=== PATIENT | male | born 1975 | race Caucasian/White ===

== ENCOUNTER 2016-05-29 20:45 | Emergency (ER) | payer BC ==
--- NOTE | 2016-05-29 21:32 | ER Document Report ---
ED Psych Disorder / Suicide - General Chief Complaint: Suicidal Ideation Stated Complaint: SUICIDAL IDEATIONS Time seen by provider: 21:32 Mode of Arrival: Wheelchair Information source: Patient - HPI Patient complains to provider of: Suicidal ideation, Suicidal plan Onset was: Cannot confirm Quality of pain: No pain Suicide Risk Factors: Bipolar, Depressed, Male, Prior suicide attempt Suicide Attempt Method: Stabbing/Cutting Normal mood: No Associated symptoms: Depressed, Flat affect Similar symptoms previously: Yes Recently seen / treated by doctor: No Notes: Patient is a 41-year-old male with a history of bipolar depression resents to the emergency room complaining of worsening depression with suicidal ideation and a plan to cut his wrists, he has a history of previous attempts by cutting his wrists in the past, he denies any current injury or pain - Related Data Allergies/Adverse Reactions: No Known Allergies Allergy (Verified 02/05/12 05:39) Past Medical History - General Information source: Patient - Social History Smoking Status: Unknown if Ever Smoked Family History: Reviewed & Not Pertinent GI Medical History: Reports: Hx Diverticulitis - Actually diverticulosis, Hx Irritable Bowel Psychiatric Medical History: Reports: Hx Bipolar Disorder, Hx Depression, Hx Schizoaffective Disorder - Immunizations Hx Diphtheria, Pertussis, Tetanus Vaccination: No Review of Systems - Review of Systems Constitutional: No symptoms reported EENT: No symptoms reported Cardiovascular: No symptoms reported Respiratory: No symptoms reported Gastrointestinal: No symptoms reported Genitourinary: No symptoms reported Male Genitourinary: No symptoms reported Musculoskeletal: No symptoms reported Skin: No symptoms reported Hematologic/Lymphatic: No symptoms reported Neurological/Psychological: See HPI -: Yes All other systems reviewed and negative Physical Exam - Vital signs Interpretation: Normal - General General appearance: Appears well, Alert - HEENT Head: Normocephalic, Atraumatic Eyes: Normal Pupils: PERRL - Respiratory Respiratory status: No respiratory distress Chest status: Nontender Breath sounds: Normal Chest palpation: Normal - Cardiovascular Rhythm: Regular Heart sounds: Normal auscultation Murmur: No - Abdominal Inspection: Normal Distension: No distension Bowel sounds: Normal Tenderness: Nontender Organomegaly: No organomegaly - Back Back: Normal, Nontender - Extremities General upper extremity: Normal inspection, Nontender, Normal color, Normal ROM , Normal temperature General lower extremity: Normal inspection, Nontender, Normal color, Normal ROM , Normal temperature, Normal weight bearing. No: Rena's sign - Neurological Neuro grossly intact: Yes Cognition: Normal Orientation: AAOx4 [place] Coma Scale Eye Opening: Spontaneous [place] Coma Scale Verbal: Oriented [place] Coma Scale Motor: Obeys Commands Mck[place] Coma Scale Total: 15 Speech: Normal Motor strength normal: LUE, RUE, LLE, RLE Sensory: Normal - Psychological Associated symptoms: Depressed, Flat affect - Skin Skin Temperature: Warm Skin Moisture: Dry Skin Color: Normal Course - Re-evaluation Re-evalutation: 05/30/16 05:00 Patient admits to depression with suicidal thoughts and a plan to cut his wrists , he has actually attempted to cut his wrists in the past, no evidence of injury today, however given patient's admission to suicidal ideation IVC paper work has been completed and patient will remain in the emergency room for further evaluation by the mental health team, he is otherwise medically cleared for transfer discharge - Laboratory Result Diagrams: 05/29/16 23:20 05/29/16 23:20 Laboratory results interpreted by me: 05/29/16 05/29/16 23:20 23:20 MCH 33.5 H Salicylates < 1.0 L Acetaminophen < 10 L - EKG Interpretation by Ar EKG shows normal: Sinus rhythm Rate: Normal Rhythm: NSR Discharge - Discharge Clinical Impression: Suicidal ideation Depression Qualifiers: Depression Type: unspecified Qualified Code(s): F32.9 - Major depressive disorder, single episode, unspecified Condition: Stable Disposition: PSYCH HOSP/UNIT
[2016-05-29 23:21] LABS: APPEARANCE,URINE CLEAR; BILIRUBIN,URINE NEGATIVE (NEGATIVE); GLUCOSE, URINE NEGATIVE (NEGATIVE); KETONES,URINE NEGATIVE (NEGATIVE); LEUKOCYTE ESTERASE,URINE NEGATIVE (NEGATIVE); NITRITE,URINE NEGATIVE (NEGATIVE); PROTEIN,URINE NEGATIVE (NEGATIVE); UROBILINOGEN,URINE NEGATIVE mg/dL (<2.0)
[2016-05-29 23:29] LABS: ABSOLUTE EOSINOPHILS # (AUTO) 0.1 10^3/uL (0.0-0.6); ABSOLUTE LYMPHOCYTES (AUTO) 3.5 10^3/uL (0.5-4.7); ABSOLUTE MONOCYTES (AUTO) 0.5 10^3/uL (0.1-1.4); ABSOLUTE NEUT (AUTO) 4.3 10^3/uL (1.7-8.2); BASOPHILS % (AUTO) 0.4 % (0-2); EOSINOPHILS % (AUTO) 1.5 % (0-6); HEMOGLOBIN 15.6 g/dL (13.5-17.0); HGB HCT DIFFERENCE 2.8; LYMPHOCYTES % (AUTO) 40.9 % (13-45); MEAN CORPUSCULAR HEMOGLOBIN 33.5 pg (27.0-33.4); MEAN CORPUSCULAR HGB CONC 35.5 g/dL (32.0-36.0); MEAN CORPUSCULAR VOLUME 94 fl (80-97); RED BLOOD COUNT 4.66 10^6/uL (4.35-5.55); RED CELL DISTRIBUTION WIDTH 12.7 % (11.5-14.0); SEGMENTED NEUTROPHILS % (AUTO) 51.2 % (42-78); WHITE BLOOD COUNT 8.5 10^3/uL (4.0-10.5)
[2016-05-29 23:33] LABS: URINE SPECIFIC GRAVITY 1.004
[2016-05-29 23:37] LABS: URINE BARBITURATES SCREEN NEGATIVE; URINE METHADONE SCREEN NEGATIVE; URINE OPIATES LOW NEGATIVE; URINE PHENCYCLIDINE SCREEN NEGATIVE
[2016-05-29 23:54] LABS: ALANINE AMINOTRANSFERASE 39 U/L (21-72); ALBUMIN 4.6 g/dL (3.5-5.0); ALCOHOL 121 mg/dL (NONE DETECTED); ALKALINE PHOSPHATASE 61 U/L (38-126); ANION GAP 13 (5-19); ASPARTATE AMINO TRANSFERASE 28 U/L (17-59); BILIRUBIN,TOTAL 0.4 mg/dL (0.2-1.3); BLOOD UREA NITROGEN 13 mg/dL (7-20); CALCIUM 9.7 mg/dL (8.4-10.2); CARBON DIOXIDE 24 mmol/L (22-30); CHLORIDE 107 mmol/L (98-107); CREATININE RESULT 0.85 mg/dL (0.52-1.25); GLUCOSE 101 mg/dL (75-110); POTASSIUM 4.2 mmol/L (3.6-5.0); SODIUM 143.8 mmol/L (137-145); TOTAL PROTEIN 6.9 g/dL (6.3-8.2)
--- NOTE | 2016-05-30 08:22 | EKG REPORT ---
SEVERITY:- NORMAL ECG - SINUS RHYTHM : Confirmed by: Dakota Celis 30-May-2016 08:22:10
--- NOTE | 2016-05-30 13:16 | PSYCHOLOGICAL NOTE ---
Psych Note - Psych Note Psych Note: Patient is a 41 year old male who presented to ED via EMS overnight. Pt was found walking with a knife in his hand with reported intent to hurt himself. Pt was also noted to have a detailed plan to hang himself with a neuse, which was reportedly found at residence of Pt. Pt did endorse consuming ETOH upon arrival and endorsed continued SI. Note, patient also reported upon arrival he wished to be IVCd and get help. Patient reported a history of Bipolar Disorder and substance abuse. Patient's tox was positive for ETOH of 121. Patient this morning states he is a chronic alcoholic and has drank daily for 20 years. Patient states he averages about six 40oz beers per day + whatever lese he can locate. Patient states he has "attempted" suicide roughly 8 times over the past 15 years, most recently 4 years ago he planned to ride his scooter into oncoming traffic, prior to that was 2 overdoses and cutting episodes. Patient states yesterday he was going to cut his jugular, but decided not to. Patient states what he actually wants to do is get sober, but he can only do so if he is not permitted to leave. Patient states he has gone through detox in the past , but leaves each time. Patient states he is depressed because he "cant escape addiction." Patient states if he is released, he will just return to his sister 's house and drink, and probably get upset and go into the [place] suicidal. Patient denies wanting to and states he would actually like to get sober. Patient states it is a vicious cycle. Patient states he feels as though if he could get his underlying Bipolar disorder addressed, he could possibly achieve sobriety. Patient's sisterPearl states: Per message, unable to leave [facility]. Patient is A&Ox4. Mood is euthymic with normal affect. Patient endorses suicidal ideations within the context of alcoholism and struggling to achieve and maintain sobriety. Patient denies homicidal ideaitons, intent, plan, or means. Patient denies A/V h; delusions not noted. Thought processes were organized. Conversational speech was fast for rate. Intellectual abilities were estimated within average range. Attention and focus were good. Insight, judgment , and impulse control were poor. Unspecified Alcohol Use Disorder, per history Unspecified Bipolar and Related Disorder Patient is psychiatrically cleared for discharge and recommended for rescind IVC. Patient is strongly encouraged to pursue detox, which in [place] is largely a voluntary process. Patient states he does not want to and in fact wants to achieve sobriety. Patient was provided the necessary resources to pursue detox. I consulted with Dr. Cardenas in regards to the care and management of this patient.
--- NOTE | 2016-05-30 13:35 | ER Document Report ---
ED Psych Disorder / Suicide - General Chief Complaint: Suicidal Ideation Stated Complaint: SUICIDAL IDEATIONS Mode of Arrival: Wheelchair - Related Data Allergies/Adverse Reactions: No Known Allergies Allergy (Verified 02/05/12 05:39) Home Medications: Current Home Medications No Home Medications 05/30/16 [History] Past Medical History - General Information source: Patient - Social History Smoking Status: Unknown if Ever Smoked Family History: Reviewed & Not Pertinent GI Medical History: Reports: Hx Diverticulitis - Actually diverticulosis, Hx Irritable Bowel Psychiatric Medical History: Reports: Hx Bipolar Disorder, Hx Depression, Hx Schizoaffective Disorder - Immunizations Hx Diphtheria, Pertussis, Tetanus Vaccination: No Physical Exam - Vital signs Vitals: Temp Pulse Resp BP Pulse Ox 98.4 F 102 H 18 142/98 H 99 05/29/16 20:52 05/29/16 20:52 05/29/16 20:52 05/29/16 20:52 05/29/16 20:52 Course - Re-evaluation Re-evalutation: 05/30/16 13:33 41-year-old male that presents initially expressing suicidality. He no longer feels suicidal and wants to go receive voluntary detox. IVC rescinded and will DC home with information about outpatient detox. - Vital Signs Vital signs: Temp Pulse Resp BP Pulse Ox 98.3 F 68 16 121/96 H 97 05/30/16 10:54 05/30/16 10:54 05/30/16 10:54 05/30/16 10:54 05/30/16 10:54 - Laboratory Result Diagrams: 05/29/16 23:20 05/29/16 23:20 Laboratory results interpreted by me: 05/29/16 05/29/16 23:20 23:20 MCH 33.5 H Salicylates < 1.0 L Acetaminophen < 10 L Discharge - Discharge Clinical Impression: Alcohol abuse Depression Qualifiers: Depression Type: unspecified Qualified Code(s): F32.9 - Major depressive disorder, single episode, unspecified Condition: Stable Disposition: HOME, SELF-CARE Additional Instructions: DEPRESSION: Your evaluation reveals that you have mental depression. While symptoms may be vague, they often include disturbance of sleep, fatigue, loss of appetite , and general loss of interest in life. While depression may be a side effect of drugs, or a reaction to a major change in your life, many cases have no known cause. If depression is acute, and related to a major loss in your life, you can expect it to clear completely with time. If you have been depressed a long time , are prone to repeated bouts of depression or low mood, or have been thinking of suicide, get help. Depression can be treated with anti-depressant medication and counselling. Long-term depression will often take a few weeks to clear, even with appropriate medication. Follow-up care is important. SUICIDAL IDEATION: Suicidal ideation is a common medical term for thoughts about suicide, which may be as detailed as a formulated plan, without the suicidal act itself. Although most people who undergo suicidal ideation do not commit suicide, some go on to make suicide attempts. The range of suicidal ideation varies greatly from fleeting to detailed planning, role playing, and unsuccessful attempts. While thoughts about suicide are common, most people do not carry out serious actions to commit suicide. Based upon your evaluation and discussion with you, we do not believe you are currently at risk to act upon your thoughts of suicide. You have agreed to return to the Emergency Department, at any time , if you feel inclined to act upon your suicidal thoughts. FOLLOW-UP CARE: If you have been referred to a physician for follow-up care, call the physician s office for an appointment as you were instructed or within the next two days. If you experience worsening or a significant change in your symptoms, notify the physician immediately or return to the Emergency Department at any time for re-evaluation.
[2016-05-30 14:03] VITALS: BP 129/87
== END 2016-05-30 14:03 | disposition home or self-care (01) ==
LOC: ER 20:45
DX: F32.9 Major depressive disorder, single episode, unspecified (principal); F10.10 Alcohol abuse, uncomplicated; R45.851 Suicidal ideations
CPT/HCPCS: 36415; 80053; 80307; 81001; 85025; 93005; 93010; 99285

== ENCOUNTER 2018-06-03 00:01 | Emergency (ER) | payer SELFPAY ==
[2018-06-03] MEDS ORDERED: HALOPERIDOL LACTATE INJ 5 MG/1 ML VIAL IM ONE (00:20)
[2018-06-03] MEDS ORDERED: LORAZEPAM INJ 2 MG/1 ML VIAL IM ONE (00:21)
--- NOTE | 2018-06-03 00:47 | ER Document Report ---
Addendum entered and electronically signed by CAMI YANES MD 06/03/18 12:00: Discharge - Discharge Clinical Impression: Alcohol abuse Suicidal behavior Qualifiers: Attempted self-injury: without attempted self-injury Qualified Code(s): R46.89 - Other symptoms and signs involving appearance and behavior Condition: Stable Disposition: HOME, SELF-CARE Additional Instructions: You have been evaluated both medical and behavioral health teams have been deemed appropriate for discharge. You are highly encouraged to follow-up with integrated family services for assistance in obtaining substance abuse treatment. You have provided resources of area providers including mobile crisis contact information. ACUTE ALCOHOL INTOXICATION and ALCOHOL ABUSE: Your evaluation revealed very high levels of alcohol. You can from drinking a large amount of alcohol rapidly! Further, there's the risk of falls, traffic accidents, and fights. A high portion (about 50 percent) of the serious injuries seen in hospital emergency rooms are caused by alcohol. Alcohol overdosage is usually due to an underlying emotional or psychiatric problem. You may benefit from counselling. If "binge" drinking is an ongoing problem for you, or if you drink ANY AMOUNT of alcohol EVERY day, you most likely have a tendency to alcoholism. You should avoid alcohol totally. We can refer you for treatment. Persons with alcohol problems are often also prone to other addictions -- you should discuss any use of medications or drugs with the doctor. You should be watched at home for the next several hours by someone who has not been drinking. Get extra fluids for the next 24 hours. Call the doctor if there is repeated vomiting, increasing headache, decreasing level of alertness, or any other worsening. CHRONIC ALCOHOLISM and ALCOHOL ABUSE: Your evaluation reveals evidence of chronic alcoholism, an addiction to alcohol. The tendency to alcoholism may be inherited. Chronic use of alcohol weakens muscles, causes fatty deposits in the liver, damages the stomach, makes you more prone to infections, and can cause defects in unborn children. In the long run, brain atrophy and cirrhosis of the liver result. You are also at greater risk for certain types of cancer, such as cancer of the mouth, throat, stomach, and liver. Counselling services are available to help you. In-hospital treatment programs often help. Support groups such as Alcoholics Anonymous can be very useful in beating this addiction. Your physician can make a referral for you. As alcoholics often are prone to other addictions, you should discuss your use of any other medications with the doctor. ALCOHOL WITHDRAWAL: Your symptoms are caused by alcohol withdrawal. After a period of frequent drinking, the brain and body are changed by the alcohol. When you quit or reduce your drinking, the nervous system becomes unstable. Withdrawal symptoms can start a few hours after your last drink, but sometimes don't begin until a couple of days later. Symptoms can include shakiness, sweating, insomnia, nausea, vomiting, fearfulness, hallucinations, and seizures. In addition to the acute effects of alcohol withdrawal, we often have to deal with the medical effects of alcoholism. These problems often include dehydration, stomach irritation, intestinal bleeding, low blood sugar, liver disease, and pancreas inflammation. Treatment for alcohol withdrawal includes mild sedatives, vitamins, and fluids. You need to be with someone who can help if symptoms become severe. Many patients can withdraw at home. Admission to the hospital or a detox facility may be necessary if withdrawal symptoms are severe and uncontrollable. Abstaining from alcohol is the only effective long-term treatment. If you start drinking again, you will not be able to control yourself after the first drink. Treatment programs are available. In addition, many alcoholics benefit from Alcoholics Anonymous or other support groups available through your counselor or druze biomass technician. AL-ANON and ALA-TEEN are support groups for friends and family members of an alcoholic. Go to the emergency room if you develop persistent vomiting, severe abdominal pain, fever, shortness of breath, hallucinations, uncontrollable tremors, or seizures. DEPRESSION: Your evaluation reveals that you have mental depression. While symptoms may be vague, they often include disturbance of sleep, fatigue, loss of appetite, and general loss of interest in life. While depression may be a side effect of drugs, or a reaction to a major change in your life, many cases have no known cause. If depression is acute, and related to a major loss in your life, you can expect it to clear completely with time. If you have been depressed a long time, are prone to repeated bouts of depression or low mood, or have been thinking of suicide, get help. Depression can be treated with anti-depressant medication and counselling. Long-term depression will often take a few weeks to clear, even with appropriate medication. Follow-up care is important. SUICIDAL IDEATION: Suicidal ideation is a common medical term for thoughts about suicide, which may be as detailed as a formulated plan, without the suicidal act itself. Although most people who undergo suicidal ideation do not commit suicide, some go on to make suicide attempts. The range of suicidal ideation varies greatly from fleeting to detailed planning, role playing, and unsuccessful attempts. While thoughts about suicide are common, most people do not carry out serious actions to commit suicide. Based upon your evaluation and discussion with you, we do not believe you are currently at risk to act upon your thoughts of suicide. You have agreed to return to the Emergency Department, at any time, if you feel inclined to act upon your suicidal thoughts. FOLLOW-UP CARE: If you have been referred to a physician for follow-up care, call the physicians office for an appointment as you were instructed or within the next two days. If you experience worsening or a significant change in your symptoms, notify the physician immediately or return to the Emergency Department at any time for re-evaluation. Referrals: [facility] [Outside] - Follow up as needed Addendum entered and electronically signed by WILLIE VELA LCSWA 06/03/18 11:53: Discharge - Discharge Clinical Impression: Alcohol abuse Suicidal behavior Qualifiers: Attempted self-injury: without attempted self-injury Qualified Code(s): R46.89 - Other symptoms and signs involving appearance and behavior Condition: Stable Disposition: HOME, SELF-CARE Additional Instructions: You have been evaluated both medical and behavioral health teams have been deemed appropriate for discharge. You are highly encouraged to follow-up with integrated family services for assistance in obtaining substance abuse treatment. You have provided resources of area providers including mobile crisis contact information. ACUTE ALCOHOL INTOXICATION and ALCOHOL ABUSE: Your evaluation revealed very high levels of alcohol. You can from drinking a large amount of alcohol rapidly! Further, there's the risk of falls, traffic accidents, and fights. A high portion (about 50 percent) of the serious injuries seen in hospital emergency rooms are caused by alcohol. Alcohol overdosage is usually due to an underlying emotional or psychiatric problem. You may benefit from counselling. If "binge" drinking is an ongoing problem for you, or if you drink ANY AMOUNT of alcohol EVERY day, you most likely have a tendency to alcoholism. You should avoid alcohol totally. We can refer you for treatment. Persons with alcohol problems are often also prone to other addictions -- you should discuss any use of medications or drugs with the doctor. You should be watched at home for the next several hours by someone who has not been drinking. Get extra fluids for the next 24 hours. Call the doctor if there is repeated vomiting, increasing headache, decreasing level of alertness, or any other worsening. CHRONIC ALCOHOLISM and ALCOHOL ABUSE: Your evaluation reveals evidence of chronic alcoholism, an addiction to alcohol. The tendency to alcoholism may be inherited. Chronic use of alcohol weakens muscles, causes fatty deposits in the liver, damages the stomach, makes you more prone to infections, and can cause defects in unborn children. In the long run, brain atrophy and cirrhosis of the liver result. You are also at greater risk for certain types of cancer, such as cancer of the mouth, throat, stomach, and liver. Counselling services are available to help you. In-hospital treatment programs often help. Support groups such as Alcoholics Anonymous can be very useful in beating this addiction. Your physician can make a referral for you. As alcoholics often are prone to other addictions, you should discuss your use of any other medications with the doctor. ALCOHOL WITHDRAWAL: Your symptoms are caused by alcohol withdrawal. After a period of frequent drinking, the brain and body are changed by the alcohol. When you quit or reduce your drinking, the nervous system becomes unstable. Withdrawal symptoms can start a few hours after your last drink, but sometimes don't begin until a couple of days later. Symptoms can include shakiness, sweating, insomnia, nausea, vomiting, fearfulness, hallucinations, and seizures. In addition to the acute effects of alcohol withdrawal, we often have to deal with the medical effects of alcoholism. These problems often include dehydration, stomach irritation, intestinal bleeding, low blood sugar, liver dis ease, and pancreas inflammation. Treatment for alcohol withdrawal includes mild sedatives, vitamins, and fluids. You need to be with someone who can help if symptoms become severe. Many patients can withdraw at home. Admission to the hospital or a detox facility may be necessary if withdrawal symptoms are severe and uncontrollable. Abstaining from alcohol is the only effective long-term treatment. If you start drinking again, you will not be able to control yourself after the first drink. Treatment programs are available. In addition, many alcoholics benefit from Alcoholics Anonymous or other support groups available through your counselor or druze biomass technician. AL-ANON and ALA-TEEN are support groups for friends and family members of an alcoholic. Go to the emergency room if you develop persistent vomiting, severe abdominal pain, fever, shortness of breath, hallucinations, uncontrollable tremors, or seizures. DEPRESSION: Your evaluation reveals that you have mental depression. While symptoms may be vague, they often include disturbance of sleep, fatigue, loss of appetite, and general loss of interest in life. While depression may be a side effect of drugs, or a reaction to a major change in your life, many cases have no known cause. If depression is acute, and related to a major loss in your life, you can expect it to clear completely with time. If you have been depressed a long time, are prone to repeated bouts of depression or low mood, or have been thinking of suicide, get help. Depression can be treated with anti-depressant medication and counselling. Long-term depression will often take a few weeks to clear, even with approp riate medication. Follow-up care is important. SUICIDAL IDEATION: Suicidal ideation is a common medical term for thoughts about suicide, which may be as detailed as a formulated plan, without the suicidal act itself. Although most people who undergo suicidal ideation do not commit suicide, some go on to make suicide attempts. The range of suicidal ideation varies greatly from fleeting to detailed planning, role playing, and unsuccessful attempts. While thoughts about suicide are common, most people do not carry out serious actions to commit suicide. Based upon your evaluation and discussion with you, we do not believe you are currently at risk to act upon your thoughts of suicide. You have agreed to return to the Emergency Department, at any time, if you feel inclined to act upon your suicidal thoughts. FOLLOW-UP CARE: If you have been referred to a physician for follow-up care, call the physicians office for an appointment as you were instructed or within the next two days. If you experience worsening or a significant change in your symptoms, notify the physician immediately or return to the Emergency Department at any time for re-evaluation. Referrals: [facility] [Outside] - Follow up as needed Original Note: ED General - General Chief Complaint: Psych Problem Stated Complaint: PSYCH PROBLEM Time Seen by Provider: 06/03/18 00:15 Notes: Patient is a 43-year-old male who presents in police custody with complaints of suicidal ideations. He called 911 because he wanted to hang himself. He has been drinking tonight. Police arrived mobile crisis arrived he refused to go to the hospital and said that he no longer wanted to help and he wanted them to leave so that he could hang himself. Mobile tin recovery worker says that the patient admitted to him several times that he had a find a rope at a nearby tree that he was going to hang himself from. He has tried to hurt himself in the past. Patient does not deny wanting to hurt himself at this time. He says he does want to go home but does not deny that he will hurt himself when he goes home. He denies take any medications. He denies any medical problems. He does drink alcohol on a daily basis. He says that he may get withdrawal if he goes a while without drinking; however, he says he never goes more than a day without drinking so therefore he cannot tell me for sure whether or not he would ever get withdrawal. No other complaints at this time. - Related Data Allergies/Adverse Reactions: No Known Allergies Allergy (Verified 02/05/12 05:39) Past Medical History - Social History Smoking Status: Current Every Day Smoker Frequency of alcohol use: Heavy Drug Abuse: None Family History: Reviewed & Not Pertinent GI Medical History: Reports: Hx Diverticulitis - Actually diverticulosis, Hx Irritable Bowel Psychiatric Medical History: Reports: Hx Bipolar Disorder, Hx Depression, Hx Schizoaffective Disorder - Immunizations Hx Diphtheria, Pertussis, Tetanus Vaccination: No Review of Systems - Review of Systems Notes: My Normal Review Basic REVIEW OF SYSTEMS: CONSTITUTIONAL : Denies fever, chills, or sweats. Denies recent illness. EENT: Denies eye, ear, throat, or mouth pain or symptoms. Denies nasal or sinus congestion. RESPIRATORY: Denies cough, cold, or chest congestion. Denies shortness of breath, difficulty breathing, or wheezing. GASTROINTESTINAL: Denies abdominal pain. Denies nausea, vomiting, or diarrhea. MUSCULOSKELETAL: Denies neck or back pain or joint pain or swelling. NEUROLOGICAL: Denies altered mental status or loss of consciousness. Denies headache. Denies weakness or paralysis or loss of use of either side. Denies problems with gait or speech. Denies sensory or motor loss. PSYCHIATRIC: Patient. Thoughts of suicide. ALL OTHER SYSTEMS REVIEWED AND NEGATIVE. Physical Exam - Vital signs Vitals: Temp Pulse Resp BP Pulse Ox 97.6 F 98 21 H 127/96 H 95 06/03/18 00:08 06/03/18 00:08 06/03/18 00:08 06/03/18 00:08 06/03/18 00:08 - Notes Notes: General Appearance: Well nourished, alert, cooperative, no acute distress, no obvious discomfort. Obvious intoxicated. Vitals: reviewed, See vital signs table. Head: no swelling or tenderness to the head Eyes: PERRL, EOMI, Conjuctiva clear Mouth: No decreasd moisture Lungs: No wheezing, No rales, No rhonci, No accessory muscle use, good air exchange bilaterally. Heart: Normal rate, Regular rythm, No murmur, no rub Abdomen: Normal BS, soft, No rigidity, No abdominal tenderness, No guarding, no rebound, no abdominal masses, no organomegaly Extremities: good pulses in all extremities Skin: warm, dry, appropriate color, no rash Neuro: speech clear, oriented x 3, normal affect, responds appropriately to questions. Symmetric facial movement. Patient is able move all 4 extremities without difficulty. Course - Re-evaluation Re-evalutation: 06/03/18 03:23 Once patient is sober and his not showing any signs of alcohol withdrawal he will be medically stable for mental health evaluation. Since receiving medications to calm him down patient has been appropriate and resting comfortably. She was given Ativan and Haldol initially because the patient says that we could not hold him back and that he would leave and pushed through the security guards. If not been safe to allow the patient to go home as he had admitted to multiple individuals that he want to hang himself and kill himself. Dictation of this chart was performed using voice recognition software; therefore, there may be some unintended grammatical errors. 06/03/18 03:24 - Vital Signs Vital signs: Temp Pulse Resp BP Pulse Ox 97.6 F 98 21 H 127/96 H 95 06/03/18 00:08 06/03/18 00:08 06/03/18 00:08 06/03/18 00:08 06/03/18 00:08 - Laboratory Result Diagrams: 06/03/18 00:40 06/03/18 00:40 Laboratory results interpreted by me: 06/03/18 06/03/18 00:40 00:40 WBC 12.1 H Sodium 148.8 H Glucose 133 H Albumin 5.3 H Salicylates 1.6 L Acetaminophen < 10 L - EKG Interpretation by Me Additional EKG results interpreted by me: 06/03/18 00:47 EKG is reviewed and interpreted by me. EKG shows sinus rhythm with a rate of [address] segment elevation or depression. T wave inversion in lead III. WA interval, QRS duration, QT intervals are within normal range. Old EKG for comparison is from May 30, 2016. Discharge - Discharge Clinical Impression: Alcohol abuse Suicidal behavior Qualifiers: Attempted self-injury: without attempted self-injury Qualified Code(s): R46.89 - Other symptoms and signs involving appearance and behavior Disposition: PSYCH HOSP/UNIT
[2018-06-03 00:51] LABS: ABSOLUTE EOSINOPHILS # (AUTO) 0.1 10^3/uL (0.0-0.6); ABSOLUTE LYMPHOCYTES (AUTO) 3.5 10^3/uL (0.5-4.7); ABSOLUTE MONOCYTES (AUTO) 0.5 10^3/uL (0.1-1.4); ABSOLUTE NEUT (AUTO) 8.1 10^3/uL (1.7-8.2); BASOPHILS % (AUTO) 0.4 % (0-2); EOSINOPHILS % (AUTO) 0.7 % (0-6); HEMATOCRIT 48.5 % (37.9-51.0); HEMOGLOBIN 16.8 g/dL (13.5-17.0); LYMPHOCYTES % (AUTO) 28.4 % (13-45); MEAN CORPUSCULAR HEMOGLOBIN 32.8 pg (27.0-33.4); MEAN CORPUSCULAR HGB CONC 34.7 g/dL (32.0-36.0); MEAN CORPUSCULAR VOLUME 94 fl (80-97); MONOCYTES % (AUTO) 3.9 % (3-13); PLATELET COUNT 285 10^3/uL (150-450); RED BLOOD COUNT 5.14 10^6/uL (4.35-5.55); SEGMENTED NEUTROPHILS % (AUTO) 66.6 % (42-78); TOTAL CELLS COUNTED % (AUTO) 100 %; WHITE BLOOD COUNT 12.1 10^3/uL (4.0-10.5)
[2018-06-03 01:09] LABS: ALANINE AMINOTRANSFERASE 27 U/L (21-72); ALBUMIN 5.3 g/dL (3.5-5.0); ALCOHOL 224 mg/dL (NONE DETECTED); ALKALINE PHOSPHATASE 71 U/L (38-126); ANION GAP 13 (5-19); ASPARTATE AMINO TRANSFERASE 25 U/L (17-59); BILIRUBIN,DIRECT 0.3 mg/dL (0.0-0.4); BILIRUBIN,TOTAL 0.3 mg/dL (0.2-1.3); BLOOD UREA NITROGEN 14 mg/dL (7-20); CALCIUM 9.6 mg/dL (8.4-10.2); CARBON DIOXIDE 29 mmol/L (22-30); CHLORIDE 107 mmol/L (98-107); GLUCOSE 133 mg/dL (75-110); POTASSIUM 4.4 mmol/L (3.6-5.0); SALICYLATE 1.6 mg/dL (2.0-20.0); SODIUM 148.8 mmol/L (137-145); TOTAL PROTEIN 8.1 g/dL (6.3-8.2)
[2018-06-03 01:13] LABS: ACETAMINOPHEN < 10 ug/mL (10-30)
[2018-06-03 02:26] LABS: APPEARANCE,URINE CLEAR; BILIRUBIN,URINE NEGATIVE (NEGATIVE); COLOR,URINE STRAW; GLUCOSE, URINE NEGATIVE (NEGATIVE); KETONES,URINE NEGATIVE (NEGATIVE); LEUKOCYTE ESTERASE,URINE NEGATIVE (NEGATIVE); NITRITE,URINE NEGATIVE (NEGATIVE); PROTEIN,URINE NEGATIVE (NEGATIVE); URINE SPECIFIC GRAVITY 1.006; UROBILINOGEN,URINE NEGATIVE mg/dL (<2.0)
[2018-06-03 02:52] LABS: URINE AMPHETAMINES SCREEN NEGATIVE; URINE BARBITURATES SCREEN NEGATIVE; URINE BENZODIAZEPINES SCREEN NEGATIVE; URINE COCAINE SCREEN NEGATIVE; URINE MARIJUANA (THC) SCREEN NEGATIVE; URINE METHADONE SCREEN NEGATIVE; URINE PHENCYCLIDINE SCREEN NEGATIVE
--- NOTE | 2018-06-03 11:46 | PSYCHOLOGICAL NOTE ---
Psych Note - Psych Note Date seen by psych provider: 06/03/18 Time seen by psych provider: 07:25 Psych Note: Reason for Consult: suicidal ideation pt presents to ed with 3 [employer] officers. per [employer] pt was saying he was going to hang himself from a tree so they brought him in. pt pt ambulated with a steady gait. pt admits to drinking alcohol prior to arrival. Patient reports that he was brought to [facility] ED via police. He states that he "got crazy last night because of alcohol." He states that this is happened many times in the past. He denies currently having an outpatient mental health provider or being on any medications. He confirms that he has had inpatient psychiatric treatment proximally 4-5 times last time being about 5-6 years ago. He discloses that the last 2 years he has been able to control his chronic suicidal ideation however he on average has one outburst year where he wants to harm himself. He discloses that he drinks daily and the longest is ever gone without drinking is 8 hours. He states that he normally drinks beer; "I try to stay away from liquor because it does not agree with me." He disclosed that he was doing both beer and shots last night and states that whenever he does drink liquor is when he has higher level of suicidal ideation. He reports that he has been drinking 16-17 years. He currently is "couch surfing" from friends home to friend's home however is "running out of friends" and is looking at possibly been having nowhere to live. He reports that he was just fired on Monday which started the drinking more than just beer this round. She is alert and orientated to person, place, time and circumstance. Mood is euthymic with congruent affect. Patient denies current suicidal homicidal ideation but reports chronic passive suicidal ideation i.e. no plans means or intent. Delusions are absent behaviors congruent with an intact reality based presentation i.e. organized linear thought process. Eye contact is well- maintained. Conversational speech is within normal rate, tone and prosody. Intellectual abilities appear to be within the average range. Attention and concentration are fair. Insight, judgment, impulse control are fair. Check-in conducted with patient Mood is not euthymic with congruent affect as evidenced by smiling and engaging with clinician. Patient denies thoughts of wanting to harm himself or others and reports that he just needs to lay off alcohol. He confirms that he knows when he does drink hard liquor he tends. To trigger his suicidal ideation. no medication recommendations at this time Unspecified Alcohol Use Disorder, per history Unspecified Bipolar and Related Disorder Impression/plan: Patient is cleared from acute psychiatric services. Patient is no longer under the influence and denies thoughts of wanting harm himself or others. He confirms that anytime he drinks hard liquor he has suicidal ideation. Patient does present with chronic passive suicidal ideation i.e. no plans means or intent. Patient reports he is interested in assistance in sob riety however is not currently interested in detox. Patient has been provided resources for shelters, food [facility] and soup [facility] in addition to mental health and substance abuse providers including mobile crisis contact information. Clinician conducted psychoeducation to help with the patient understand symptoms, triggers, and maladaptive coping skills versus positive coping skills. Dr. Cardenas was consulted and care management of this patient; attending physicians in agreement with recommendations and disposition.
--- NOTE | 2018-06-03 12:02 | ER Document Report ---
Doctor's Note Notes: 06/03/18 12:01 I have seen the patient, reviewed the chart, reviewed the vital signs and the labs. He is currently without any discomfort. He denies suicidal ideations. He is medically clear for psychiatric disposition. Psychology team has evaluated the patient and felt him safe for outpatient follow-up.
[2018-06-03 12:10] VITALS: BP 119/77
--- NOTE | 2018-06-03 13:07 | EKG REPORT ---
SEVERITY:- NORMAL ECG - SINUS RHYTHM : Confirmed by: Carine Rodgers MD 03-Jun-2018 13:07:07
== END 2018-06-03 12:10 | disposition home or self-care (01) ==
LOC: ER 00:01
DX: F10.10 Alcohol abuse, uncomplicated (principal); R46.89 Other symptoms and signs involving appearance and behavior; R45.851 Suicidal ideations; Z91.5 Personal history of self-harm; F17.200 Nicotine dependence, unspecified, uncomplicated
CPT/HCPCS: 93005; 99285; 96372; 36415; 80307 ×4; 85025; 80053; 81001; 93010; J1630; J2060